=== PATIENT | female | born 1970 | race Caucasian/White ===

== ENCOUNTER → 2017-09-17 15:13 | Outpatient (CLI) | payer OTHER, SELFPAY ==
--- NOTE | 2017-09-17 15:17 | DI.RAD.S_ITS ---
PROCEDURE: XR CERVICAL SPINE 4V OR 5V INDICATIONS: HNP with chronic cervical radic TECHNIQUE: 5 views of the cervical spine acquired. COMPARISON: None. FINDINGS: Bones: No fractures or dislocations to the T1 level. Oblique images demonstrate bilateral mild to moderate bony C5-C6 foraminal stenoses. Moderate degenerative disc disease at C5-6 and C6-7. Soft tissues: No prevertebral soft tissue swelling. IMPRESSION: No trauma found. Moderate degenerative disc disease at C5-6 and C6-7 with mild to moderate bilaterally symmetric foraminal stenosis seen at C5-6 due to osteophytes projecting into the neural foramen at this level, on the oblique views. Dictated by: Naeem Kaur M.D. on 09/17/2017 at 16:24 Approved by: Naeem Kaur M.D. on 09/17/2017 at 16:26
== END ==
PROVIDERS: Visit Provider Physical Medicine & Rehabilitation
DX: M48.02 Spinal stenosis, cervical region (principal); M50.122 Cervical disc disorder at C5-C6 level with radiculopathy; R51 Headache
CPT/HCPCS: 72050; 99204; 99214

== ENCOUNTER 2017-10-06 08:58 | Outpatient (CLI) | payer OTHER, SELFPAY ==
[2017-10-06] VITALS (10 sets, daily range): BP systolic 91–116; BP diastolic 51–72; PULSE 55–72; RESP 16–18; TEMP 36; O2SAT 98–100
--- NOTE | 2017-10-06 08:59 | DI.RAD.S_ITS ---
PROCEDURE: PAIN C/T INTERLAMINAR INJECT INDICATIONS: HNP with chronic cervical radic FINDINGS: Fluoroscopic spot filming was performed to verify placement of spinal needles at the C6-7 level(s), as labeled on the films. Appropriate location(s) of the needle tip(s) was confirmed by injection of iodinated contrast. IMPRESSION: Documentation of injection at the C6-7 level Dictated by: Kodi Crook M.D. on 10/06/2017 at 13:30 Approved by: Kodi Crook M.D. on 10/06/2017 at 13:31
[2017-10-06] MEDS: MIDAZOLAM 5 MG/5 ML VIAL IV (10:17)
[2017-10-06] MEDS: DEXAMETHASONE 10 MG/ML VIAL 30 MG INJ (10:31)
[2017-10-06] MEDS: IOPAMIDOL 15 ML VIAL 3 ML INJ (10:31)
[2017-10-06] MEDS: LIDOCAINE 1% 20 ML INJ 5 ML INJ (10:32)
--- NOTE | 2017-10-06 10:38 | PM.PROC.1 ---
Procedures Date/Time Date of procedure: 10/06/17 Time of procedure: 10:38 General Procedure description: PREOP DIAGNOSIS 1. CERVICAL STENOSIS, 2. CERVICAL HNP WITH UPPER EXTREMITY RADICULAR FEATURES, POST OP DIAGNOSIS 1. CERVICAL STENOSIS, 2. CERVICAL HNP WITH UPPER EXTREMITY RADICULAR FEATURES, PROCEDURES 1. FLUORSCOPICALLY GUIDED CONTRAST CONTROLLED INTERLAMINAR EPIDURAL STEROID INJECTION - C6/7 TL DARWIN PHYSICIAN: Ace Plummer DO INDICATIONS Savi is referred by Dr. Oh for treatment of Cervical HNP with Upper Extremity Paresthesias. FINDINGS Cervical Stenosis due to disc deterioration and nerve root irritation and nerve root irritation DESCRIPTION OF PROCEDURE Fluoroscopically guided, contrast-controlled C6/7 translaminar epidural steroid injection with conscious sedation. Following denial of allergy and review of potential side effects and complications, including, but not necessarily limited to, infection, allergic reaction, local tissue breakdown, temporary as well as permanent nerve injury, stroke, paralysis, and possible , the patient indicated that patient understood and agreed to proceed. An informed consent document was signed by the patient, witnessed by a nurse, and placed in the patient's chart. Additionally, other treatment options including modalities, medications, and physical therapy were reviewed with the patient. Per the patient request, IV conscious sedation was administered via 5mg of Versed and 50mcg of Fentanyl to patient comfort. The patient's vital signs were monitored throughout the procedure by both the nurse and the physician without significant fluctuation. The patient remained conversant throughout the procedure. In the prone position, following sterile prep and drape of the cervical region, the C6/7 translaminar space was identified fluoroscopically. The skin was anesthetized via a 25-gauge 1.5-inch needle with 1% lidocaine solution. At this point, a 25-gauge, 2.5-inch short bevel spinal needle was atraumatically introduced and advanced under fluoroscopic guidance into epidural space at the C6/7 translaminar space. Depth was confirmed on lateral view. Radiological data, including multiple fluoroscopic views of the cervical spine, reveal a spinal needle at the C6/7 translaminar space. Lateral views then show placement of the needle in the epidural space. Subsequent views show contrast material flowing superiorly and inferiorly in the epidural space. DSA fluoroscopy with live contrast injection, once again, confirmed no vascular or intrathecal uptake. At this point, using loss of resistance technique with saline and air, the epidural space was entered. Following negative aspiration, injection of approximately 1.5 cc of Isovue-200 with live fluoroscopy in the AP view confirmed epidural flow in the epidural space without vascular or intrathecal uptake observed. Subsequently, a test dose of 1 cc of 1% lidocaine solution was injected and patient was observed for two minutes without signs or symptoms of complications, including abdominal pain, shortness of breath, bilateral upper or lower extremity weakness, nausea and vomiting, prior to steroid injection. At this point, 3 cc or 30 mg of dexamethasone was then injected without incident. The patient was then transferred to the recovery area where they were observed for an appropriate period of time after the injection. The patient reported a VAS score of 6 prior to the procedure and a post-procedure VAS of 0. Total Fluoroscopy Time: 37.0 seconds Total Conscious Time: 24min POST OP INSTRUCTIONS The patient was provided a Pain Log to continue to record their response to the target-specific procedure prior to follow-up visit with the referring provider. Additionally, specific post-injection care instructions and a contact number to our office were provided if concerns arise regarding possible complications associated with the procedure are suspected. Ace Plummer, Complications: none
== END 2017-10-06 11:25 ==
LOC: RAD 08:59
PROVIDERS: Visit Provider Physical Medicine & Rehabilitation
DX: M48.02 Spinal stenosis, cervical region (principal); M50.123 Cervical disc disorder at C6-C7 level with radiculopathy
CPT/HCPCS: 62321; 99152; 99153; J1100; J2250

== ENCOUNTER 2018-03-17 11:13 | Emergency (ER) | payer OTHER, SELFPAY ==
[2018-03-17 11:21] VITALS: BP 131/80; PULSE 100; RESP 19; TEMP 36.4; O2SAT 100
--- NOTE | 2018-03-17 12:49 | ED.ANXIETY ---
HPI - Anxiety <BEVERLY Álvarez - Last Filed: 03/17/18 21:26> General Chief Complaint: Anxiety Stated Complaint: NERVOUS BREAKDOWN Time Seen by Provider: 03/17/18 12:07 Source: patient Mode of arrival: ambulatory Limitations: no limitations History of Present Illness HPI narrative: 47-year-old female with history of bipolar rhythm and chronic headaches and neck pain currently being treated by pain management. she is a nonsmoker. She is here for complaint of feeling overwhelmed over the past to 3 days. She reports that she has been crying on and off over the past couple of days she feels overwhelmed due to the fact of her chronic pain and the fact that she has been having difficulty in holding employment due to her chronic pain. She states that she was treated with a uterine for her bipolar resume however she do not longer has medical insurance and could not afford treatment any longer she stopped couple years ago. She denies any suicidal ideation however she does state that she no longer wants to continue going on the way that she is going. She denies having any plan. She denies any homicidal ideation. Related Data Home Medications Medication Instructions Recorded Confirmed phentermine [Adipex-P] 37.5 mg PO DAILY 03/17/18 03/17/18 sumatriptan succinate 100 mg PO SEE INSTRUCTIONS PRN 03/17/18 03/17/18 topiramate [Topamax] 50 mg PO DAILY PRN 03/17/18 03/17/18 Previous Rx's Medication Instructions Recorded gabapentin 300 mg capsule 300 mg PO TID #90 cap 09/17/17 trazodone 50 mg tablet 50 mg PO BEDTIME PRN #60 tab 12/10/17 celecoxib 200 mg capsule 200 mg PO DAILY #30 cap 01/12/18 Ajovy 225 mg [id number] QMONTH 02/09/18 #1 [id number] lorazepam [Ativan] 1 mg PO BID-TID PRN #10 tab 03/17/18 Allergies Allergy/AdvReac Type Severity Reaction Status Date / Time amoxicillin [AMOXICILLIN] Allergy Intermediate RASH Verified 02/09/18 11:41 Review of Systems <BEVERLY Álvarez - Last Filed: 03/17/18 21:26> Constitutional Denies chills, Denies fever(s), Denies lethargy and Denies weakness Eyes Denies change in vision, Denies eye discharge, Denies irritation and Denies loss of vision ENT Ears, Nose, Mouth, and Throat: Denies change in voice, Denies neck pain and Denies sore throat Cardiovascular Denies chest pain, Denies irregular heart rhythm, Denies lightheadedness, Denies palpitations, Denies dyspnea, Denies dyspnea on exertion and Denies orthopnea Respiratory Denies cough, Denies dyspnea, Denies dyspnea on exertion and Denies wheezing Gastrointestinal Gastrointestinal: Denies abdominal pain, Denies change in bowel habits, Denies diarrhea, Denies nausea and Denies vomiting Genitourinary Denies hematuria, Denies flank pain, Denies urinary incontinence and Denies urinary urgency Musculoskeletal Denies neck pain Integumentary/Breasts Denies pruritus, Denies erythema, Denies rash and Denies wounds Neurologic Denies confusion, Denies loss of vision and Denies weakness Psychiatric Reports anxiety, Denies confusion, Denies depression, Reports panic attacks, Denies homicidal ideation and Denies suicidal ideation Endocrine Denies palpitations Hematologic/Lymphatic Denies easy bruising Allergic/Immunologic Denies wheezing Exam <BEVERLY Álvarez - Last Filed: 03/17/18 21:26> Initial Vital Signs Initial Vital Signs: Vital Signs Temperature 97.6 F 03/17/18 11:21 Pulse Rate 100 H 03/17/18 11:21 Respiratory Rate 19 03/17/18 11:21 Blood Pressure 131/80 03/17/18 11:21 Pulse Oximetry 100 03/17/18 11:21 Const General: cooperative and well developed Nutritional Appearance: well nourished Orientation: alert, awake, oriented x3 and not confused [facility] Mouth: oral mucosae normal, oropharynx normal and moist mucous membranes Eyes Conjunctivae: conjunctivae normal Sclera: sclerae normal Pupils: PERRL EOM: EOM intact bilaterally Resp Effort & Inspection: normal respiratory effort, able to speak in complete sentences, no respiratory distress and no use of accessory muscles Auscultation: clear to auscultation bilaterally, no rales, no rhonchi and no wheezes Cardio Rate: regular rate Rhythm: regular rhythm Heart Sounds: no click, no gallops, no murmurs and no rubs Skin General: no rashes or lesions noted, No jaundice and No petechiae Neuro General: alert, oriented x3, gait normal and no focal motor deficits Speech: speech normal Psych Appearance: grossly normal and well kempt Mood: anxious mood Affect: anxious affect Thought Content: no homicidality and suicidality <Supriya Arguello DO - Last Filed: 03/18/18 07:20> Initial Vital Signs Initial Vital Signs: Vital Signs Temperature 97.6 F 03/17/18 11:21 Pulse Rate 100 H 03/17/18 11:21 Respiratory Rate 19 03/17/18 11:21 Blood Pressure 131/80 03/17/18 11:21 Pulse Oximetry 100 03/17/18 11:21 Course <BEVERLY Álvarez - Last Filed: 03/17/18 21:26> Orders Ordered: Discontinued Medications Lorazepam (Ativan) 1 mg PO NOW ONE Stop: 03/17/18 13:16 Last Admin: 03/17/18 13:31 Dose: 1 mg Vital Signs - 8 hr 03/17/18 13:46 03/17/18 15:22 Pulse Rate 73 85 Respiratory Rate 18 18 Blood Pressure [Left Arm] 123/78 134/81 Pulse Oximetry 100 97 <Supriya Arguello DO - Last Filed: 03/18/18 07:20> Orders Ordered: Discontinued Medications Lorazepam (Ativan) 1 mg PO NOW ONE Stop: 03/17/18 13:16 Last Admin: 03/17/18 13:31 Dose: 1 mg Vital Signs - 8 hr 03/17/18 13:46 03/17/18 15:22 Pulse Rate 73 85 Respiratory Rate 18 18 Blood Pressure [Left Arm] 123/78 134/81 Pulse Oximetry 100 97 MDM - Anxiety <BEVERLY Álvarez - Last Filed: 03/17/18 21:26> MDM Narrative Medical decision making narrative: Patient was given 1 mg of Ativan p.o. in the emergency room which helped her symptoms. Discussed case with [facility] who will follow up with the patient tomorrow at [facility]. Patient is agreeable to follow up with them. She states that she feels that she will be safe until tomorrow. She is given a small amount of Ativan to help her symptoms to bridge until she can get follow-up treatment. She is given 1 800 number for crisis Center for any worsening symptoms in the meantime. Return emergency room for any worsening symptoms. Discharge Plan Departure Patient Disposition: Home Clinical Impression: Acute anxiety Discharge Date/Time: 03/17/18 16:09 Interventions: ED Discharge Assessment Last Done: 03/17/18 16:09 Instructions: DI for Anxiety -- Adult Activity Restrictions/Additional Instructions: He was scheduled for an appointment at [facility] tomorrow at 2:00 p.m. in [place]. The address is [address] [place] [address]. if there is any crisis in the meantime before tomorrow you may call them at [phone]. you may also return to the emergency room for any worsening symptoms. you are prescribed small amount of Ativan to help with symptoms use as directed no driving while on the Ativan. Recommend staying with family members this evening so that she have somebody to be with. Prescriptions: New lorazepam [Ativan] 1 mg tablet 1 mg PO BID-TID PRN (Reason: anxiety) Qty: 10 RF: 0 No Action celecoxib [Celebrex] 200 mg capsule 200 mg PO DAILY Qty: 30 RF: 2 sumatriptan succinate 100 MG tablet 100 mg PO SEE INSTRUCTIONS PRN (Reason: Migraine Headache) RF: 0 phentermine [Adipex-P] 37.5 mg capsule 37.5 mg PO DAILY RF: 0 topiramate [Topamax] 50 mg tablet 50 mg PO DAILY PRN (Reason: Migraine Headache) RF: 0 trazodone 50 mg tablet 50 mg PO BEDTIME PRN (Reason: insomnia 1-2 tabs PO at Bedtime) Qty: 60 RF: 2 Ajovy 225 mg pen injector 225 mg [id number] QMONTH Qty: 1 RF: 11 gabapentin 300 mg capsule 300 mg PO TID Qty: 90 RF: 2 Referrals: [facility] [Provider Group] <Supriya Arguello DO - Last Filed: 03/18/18 07:20> Cosign ED Attending Cosignature Attestation: I was immediately available in the department for consultation. This documentation has been reviewed and I agree with assessment and plan. Supervised by Supriya Arguello DO
[2018-03-17] MEDS: LORazepam 0.5 MG TABLET 1 MG PO (13:31)
[2018-03-17 13:46] VITALS: BP 123/78; PULSE 73; RESP 18; O2SAT 100
[2018-03-17 15:22] VITALS: BP 134/81; PULSE 85; RESP 18; O2SAT 97
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
== END 2018-03-17 16:09 | disposition home or self-care (01) ==
PROVIDERS: Emergency Provider Nurse Practitioner Family
DX: F41.9 Anxiety disorder, unspecified (principal)
CPT/HCPCS: 99283

== ENCOUNTER 2018-09-29 09:28 | Outpatient (CLI) | payer OTHER, SELFPAY ==
[2018-09-29] VITALS (8 sets, daily range): BP systolic 101–118; BP diastolic 67–88; PULSE 65–78; RESP 8–20; TEMP 36.5; O2SAT 98–100
--- NOTE | 2018-09-29 09:30 | DI.RAD.S_ITS ---
PROCEDURE: PAIN C/T FACET INJ/BLK 1ST L INDICATIONS: RADICULOPATHY FINDINGS: Fluoroscopic spot filming was performed to verify placement of spinal needles at the level(s) as labeled on the films. Appropriate location(s) of the needle tip(s) was confirmed by injection of iodinated contrast. IMPRESSION: Fluoroscopy for pain management. Dictated by: Jean Pierre Osorio M.D. on 09/29/2018 at 12:25 Approved by: Jean Pierre Osorio M.D. on 09/29/2018 at 12:26
[2018-09-29] MEDS: fentaNYL 100 MCG/2 ML INJ 50 MCG IV (10:30)
[2018-09-29] MEDS: MIDAZOLAM 5 MG/5 ML VIAL IV (10:30)
[2018-09-29] MEDS: BUPIVACAINE 0.5% (PF) VIAL 2 ML INJ (10:38)
[2018-09-29] MEDS: LIDOCAINE 1% 20 ML INJ 5 ML INJ (10:39)
[2018-09-29] MEDS: IOPAMIDOL 15 ML VIAL 3 ML INJ (10:39)
[2018-09-29] MEDS: DEXAMETHASONE 10 MG/ML VIAL 20 MG INJ (10:39)
--- NOTE | 2018-09-29 10:51 | PC.NURSE ---
Pt tolerated procedure well, was awake throughout procedure. Able to get off table on own with standby assist. Transferred pt awake and alert to pre procedure room via wheelchair for continued monitoring with Arely BRITO.
--- NOTE | 2018-09-29 10:56 | P.PCN_ITS ---
Procedures Date/Time Date of procedure: 09/29/18 Time of procedure: 10:49 General Procedure description: PREOP DIAGNOSIS 1. FACET ARTHROPATHY 2. AXIAL NECK PAIN POST OP DIAGNOSIS 1. FACET ARTHROPATHY 2. AXIAL NECK PAIN PROCEDURES 1. FLUOROSCOPICALLY GUIDED, CONTRAST-CONTROLLED LEFT C6/7 FACET MBB. PHYSICIAN: Ace Plummer, DO INDICATIONS Genevieve is referred by Dr. Mcintosh for treatment of Axial Neck Pain DESCRIPTION OF PROCEDURE Fluoroscopically guided, contrast-controlled left C6 and C7 medial branch blocks. Following review of allergy and review of potential side effects and complications, including, but not necessarily limited to, infection, allergic reaction, local tissue breakdown, stroke, temporary or permanent nerve injury and paralysis, the patient indicated that the patient understood and agreed to proceed. An informed consent document was signed by the patient, witnessed by a nurse, and placed in the patient's chart. Additionally, other treatment options including medications, modalities, and physical therapy were reviewed with the patient. After review of previous anaesthesic history and IV conscious sedation the patient was deemed safe to proceed with todays procedure with IV conscious sedation as ASA class II designation. Safety time-out was performed to confirm patient ID, procedure to be performed and site of procedure. IV sedation was accomplished with a combination of 5mg of Versed and 50mcg of Fentanyl was administered by the RN after DO order, titrated to patient comfort during the course of the procedure while the patient remained responsive to all verbal commands In the prone position, following sterile prep and drape of the cervical spine region, the posterior aspect of the left C6 and C7 medial branchs were identified fluoroscopically. The skin was anesthetized via a 25-gauge 1.5-inch needle with 1% lidocaine solution into the corresponding medial branchs. At this point, a 25-gauge 2.5-inch spinal needle was atraumatically introduced and advanced under fluoroscopic guidance into the corresponding locations. Following negative aspiration, injections of approximately 0.1-cc of Isovue 200 confirmed placement without vascular uptake. At this point, a total of 0.5cc of 0.25% bupivicaine solution was injected without complication into each of the corresponding medial branches. The procedure tolerated the procedure well without signs or symptoms of compli cations prior to transfer to the recovery area continued monitoring without incident. The patient was then transferred to the recovery area where they were observed for an appropriate period of time after the injection. The patient reported a VAS score of 7 prior to the procedure and a post- procedure VAS of 0. Total Fluoroscopy Time: 20.5 seconds Total Conscious Sedation Time: 24 min POST OP INSTRUCTIONS They were provided a Pain Log to continue to record their response to the target-specific procedure prior to their follow-up visit with their referring physician. Additionally, specific post-injection care instructions and a contact number to our office were provided if concerns arise regarding possible complications associated with the procedure are suspected. Ace Plummer DO Complications: none
== END 2018-09-29 12:02 | disposition home or self-care (01) ==
LOC: RAD 09:30
PROVIDERS: PCP Preventive Medicine Occupational Medicine; Visit Provider Physical Medicine & Rehabilitation
DX: M47.812 Spondylosis without myelopathy or radiculopathy, cervical region (principal); M54.2 Cervicalgia
CPT/HCPCS: 64490; 99152; J1100; J2250; J3010

== ENCOUNTER → 2018-12-22 16:05 | Outpatient (CLI) | payer OTHER, SELFPAY ==
--- NOTE | 2018-12-22 16:06 | DI.MRI.S_ITS ---
PROCEDURE: MR CERVICAL SPINE WO CON INDICATIONS: Neck pain TECHNIQUE: Noncontrast sagittal T1 spin echo and T2 fast spin echo, sagittal STIR, foraminal oblique sagittal T2 fast spin echo, and axial gradient echo or T2 fast spin echo through the cervical spine. COMPARISON: [facility], CR, XR CERVICAL SPINE 4V OR 5V, 09/17/2017, 14:59. FINDINGS: Image quality: This examination is limited by involuntary motion artifact. Alignment and Curvature: There is reversal of the normal cervical lordosis, with the apex at the T5 level. There is minimal anterolisthesis at the C5-C6 level. Bone Marrow: Marrow demonstrates normal overall signal. Spinal Cord: Visualized spinal cord has normal size and signal. No cerebellar tonsillar herniation. Paraspinous Soft Tissues: No paravertebral masses. Prevertebral soft tissues are normal in thickness. C2-C3: Normal appearance. C3-C4: No significant abnormality is seen. C4-C5: Mild loss of disc height is seen. Loss of disc signal is seen. There is moderate left-sided facet hypertrophy seen. There is moderate to severe left-sided and no significant right-sided neural foraminal narrowing seen. Mild to moderate central canal narrowing is seen. C5-C6: Mild to moderate loss of disc height and disc signal can be seen. Moderate disc osteophyte complex is seen at this level. There is a protruding component seen into the right foraminal region. There is moderate to severe right-sided and moderate left-sided neural foraminal narrowing seen. Moderate central canal narrowing is seen with associated mass effect upon the ventral spinal cord. C6-C7: Mild loss of disc height is seen. Loss of disc signal is seen. [id number] disc osteophyte complex is seen. Mild bilateral neural foraminal narrowing is seen. Mild to moderate central canal narrowing is seen. There is mild mass effect upon the ventral spinal cord. C7-T1: Mild loss of disc height is seen. Loss of disc signal is seen. Moderate disc osteophyte complex is seen, with a central disc protrusion present. There is moderate right-sided and mild left-sided neural foraminal narrowing seen. Mild to moderate central canal narrowing is seen, with associated mass effect upon the ventral spinal cord. IMPRESSION: Multiple levels of cervical spine degenerative change are seen, which are most prominent at C5-C6. Dictated by: Casey Curtis M.D. on 12/22/2018 at 16:38 Approved by: Casey Curtis M.D. on 12/22/2018 at 16:42
== END ==
PROVIDERS: PCP Preventive Medicine Occupational Medicine; Visit Provider Physical Medicine & Rehabilitation
DX: M54.2 Cervicalgia (principal); M47.22 Other spondylosis with radiculopathy, cervical region; R51 Headache; M48.02 Spinal stenosis, cervical region
CPT/HCPCS: 72141

== ENCOUNTER → 2019-12-13 10:49 | Outpatient (CLI) | payer OTHER, SELFPAY ==
--- NOTE | 2019-12-13 | DI.MRI.S_ITS ---
PROCEDURE: MR LUMBAR SPINE WO CON INDICATIONS: Radiculopathy, lumbar region TECHNIQUE: Noncontrast sagittal T1 spin echo and T2 fast echo, sagittal STIR, axial T1 and T2 fast spin echo through the lumbar spine. In cases with scoliosis, additional coronal T2 fast spin echo may be performed. COMPARISON: None. FINDINGS: Image quality: Excellent. Alignment and Curvature: Normal alignment of the lumbar spine. Vertebral body heights maintained. Bone Marrow: There is periarticular bone marrow edema in association with L4-L5 and L5-S1 facet osteoarthropathy, much more pronounced on the right. There is associated facet effusion, subchondral cystic change, and subchondral sclerosis along with periarticular soft tissue edema. The marrow edema extends into the pedicles bilaterally, again right greater than left. There is also discogenic marrow edema at L5-S1. No suspicious focal marrow signal abnormality. Spinal Cord: Normal morphology and signal intensity of the cervical cord. Regional Soft Tissues: Prevertebral and paraspinous soft tissues unremarkable. L1-L2: No spinal canal or neural foraminal stenosis. L2-L3: No spinal canal or neural foraminal stenosis. L3-L4: No spinal canal or neural foraminal stenosis. L4-L5: Disc desiccation and height loss with circumferential disc bulge flattening the ventral thecal sac and mildly displacing the descending L5 nerve roots within both subarticular zones. Foraminal components of the disc bulge and facet hypertrophy contribute to mild bilateral neural foraminal stenosis. L5-S1: Diffuse disc bulge flattens the ventral thecal sac. No mass effect upon the traversing S1 nerve roots. Mild right and severe left neural foraminal stenosis related to neural foraminal collapse and foraminal components of the disc bulge with additional contribution from facet hypertrophy. IMPRESSION: 1. Extensive marrow edema in association with L4-L5 and L5-S1 facet osteoarthropathy, along with periarticular soft tissue edema, facet joint effusions, and subchondral cystic change. These findings are potential sources of nonradicular axial back pain. 2. Severe neural foraminal narrowing on the left and moderate neural foraminal narrowing on the right at L5-S1. Correlate for any corresponding left L5 radicular symptoms. 3. Displacement of the descending L5 nerve roots at the L4-L5 level by disc material. Dictated by: Dakota Marquez M.D. on 12/13/2019 at 11:30 Approved by: Dakota Marquez M.D. on 12/13/2019 at 11:37
== END ==
PROVIDERS: PCP Preventive Medicine Occupational Medicine; Referring Provider Physician Assistant; Visit Provider Physician Assistant
DX: M47.26 Other spondylosis with radiculopathy, lumbar region (principal); M47.27 Other spondylosis with radiculopathy, lumbosacral region; M51.16 Intervertebral disc disorders with radiculopathy, lumbar region; M51.17 Intervertebral disc disorders with radiculopathy, lumbosacral region; M48.07 Spinal stenosis, lumbosacral region
CPT/HCPCS: 72148

== ENCOUNTER → 2020-04-22 10:14 | Outpatient (CLI) | payer OTHER, SELFPAY ==
--- NOTE | 2020-04-22 10:15 | DI.RAD.S_ITS ---
PROCEDURE: XR LUMBAR SPINE MIN 4V INDICATIONS: lbp TECHNIQUE: 4 views of the lumbar spine were acquired. COMPARISON: None. FINDINGS: Bones: 5 nonrib-bearing vertebrae are present. Mild degenerative anterolisthesis of L4 on L5 measures 7 mm. No vertebral body compression fractures. No suspicious bony lesions. Soft tissues: Overlying bowel gas pattern is normal. No suspicious soft tissue calcifications. Oblique images: No pars defects. Bilateral prominent L4-L5 and L5-S1 facet arthropathy. IMPRESSION: Lower lumbar facet arthropathy. No evidence acute bony abnormality of the lumbar spine. If clinical suspicion and/or symptoms persist, further assessment with repeat plain films, or advanced imaging (e.g., CT, MRI, or bone scan) may be helpful for further assessment. Dictated by: Stanley Shi M.D. on 04/22/2020 at 10:51 Approved by: Stanley Shi M.D. on 04/22/2020 at 10:52
== END ==
PROVIDERS: PCP Preventive Medicine Occupational Medicine; Referring Provider Physical Medicine & Rehabilitation; Visit Provider Physical Medicine & Rehabilitation
DX: M51.26 Other intervertebral disc displacement, lumbar region (principal); M47.816 Spondylosis without myelopathy or radiculopathy, lumbar region; M47.817 Spondylosis without myelopathy or radiculopathy, lumbosacral region; Q76.1 Klippel-Feil syndrome; G43.111 Migraine with aura, intractable, with status migrainosus; R56.9 Unspecified convulsions
CPT/HCPCS: 72110; 99214

== ENCOUNTER 2020-06-20 09:12 | Outpatient (CLI) | payer OTHER, SELFPAY ==
[2020-06-20] VITALS (8 sets, daily range): BP systolic 86–143; BP diastolic 53–78; PULSE 59–78; RESP 14–27; TEMP 36.2; O2SAT 93–100
--- NOTE | 2020-06-20 09:14 | DI.RAD.S_ITS ---
PROCEDURE: PAIN L/S TRANSFORAMINAL INJECT INDICATIONS: SPONDYLOSIS COMPARISON: None. FINDINGS: Fluoroscopic spot filming was performed to verify placement of spinal needles at the right L5-S1 level(s), as labeled on the films. Appropriate location(s) of the needle tip(s) was confirmed by injection of iodinated contrast. IMPRESSION: 6 S full needle tip localization on the right at L5-S1 for epidural steroid injection, transforaminal approach. Dictated by: Naeem Kaur M.D. on 06/20/2020 at 12:03 Approved by: Naeem Kaur M.D. on 06/20/2020 at 12:16
[2020-06-20] MEDS: fentaNYL 100 MCG/2 ML INJ 50 MCG IV (10:15)
[2020-06-20] MEDS: MIDAZOLAM 5 MG/5 ML VIAL IV (10:20)
[2020-06-20] MEDS: IOPAMIDOL 15 ML VIAL 3 ML INJ (10:22)
[2020-06-20] MEDS: BUPIVACAINE 0.25% (PF) VIAL 2 ML INJ (10:22)
[2020-06-20] MEDS: DEXAMETHASONE 10 MG/ML VIAL 20 MG INJ (10:23)
[2020-06-20] MEDS: BETAMETHASONE 30 MG/5 ML MDV 6 MG INJ (10:23)
--- NOTE | 2020-06-20 10:32 | P.PCN_ITS ---
Date/Time/Diagnoses Date of procedure: 06/20/20 Time of procedure: 10:32 Pre-procedure diagnosis: 1. FORAMINAL STENOSIS WITH LE SYMPTOMS Post-procedure diagnosis: same Procedure Notes Procedure: 1. FLUOROSCOPICALLY GUIDED CONTRAST CONTROLLED TRANSFORAMINAL EPIDURAL STEROID INJECTION - RIGHT L5/S1 TFESI Indications: Genevieve is referred by Dr. Mcintosh for treatment of Foraminal Stenosis with Right LE Symptoms Physician: Ace Plummer Total Fluoroscopy time (seconds): 13 Total sedation minutes: 11 Complications: none Procedure in detail & Post-procedure care: FINDINGS Foraminal Nerve Root Compression secondary to disc disease and facet hypertrophy DESCRIPTION OF PROCEDURE Following review of allergy and review of potential side effects and complications, including, but not necessarily limited to, infection, allergic reaction, local tissue breakdown, stroke, temporary or permanent nerve injury, paralysis, and possible , the patient indicated that the patient understood and agreed to proceed. An informed consent document was signed by the patient, witnessed by a nurse, and placed in the patient's chart. Additionally, other treatment options including medications, modalities, and physical therapy were reviewed with the patient. After review of previous anaesthesic history and IV conscious sedation the patient was deemed safe to proceed with today?s procedure with IV conscious sedation as ASA class II designation. Safety time-out was performed to confirm patient ID, procedure to be performed and site of procedure. IV sedation was accomplished with a combination of 5mg of Versed and 50mcg of Fentanyl was administered by the RN after DO order, titrated to patient comfort during the course of the procedure while the patient remained responsive to all verbal commands In the prone position following sterile prep and drape of the lumbar region, the Right L4/5 posterior neuroforamen was identified fluoroscopically. The skin was anesthetized via a 25-gauge 1.5-inch needle with 1% lidocaine solution. At this point, a 25-gauge 3.5-inch spinal needle was atraumatically introduced and advanced under fluoroscopic guidance through the posterior Right L4/5 neuroforamen to approximately the anterior aspect of the canal. Depth was confirmed on lateral view. Following negative aspiration, injection of approximately 1.5cc of Isovue 200 under live fluoroscopy in the AP view confirmed excellent flow along the nerve root, into the epidural space without vascular or intrathecal uptake observed Radiological data, including multiple fluoroscopic views of the lumbosacral spine, reveal a spinal needle at the right L4/5 posterior neuroforamen. Subsequent views show flow of contrast material flowing superiorly and inferiorly along the nerve root confirming epidural flow. Subsequently, a test dose of 1.5 cc of 1% lidocaine solution was administered and patient was observed for two minutes for signs or symptoms of complications, including abdominal pain, shortness of breath, bilateral upper or lower extremity weakness, nausea and vomiting, prior to steroid injection. At this point, a total of 3cc or 20mg of dexamethasone and 6mg of betamethasone was injected without incident. The procedure tolerated the procedure well without signs or symptoms of complications prior to transfer to the recovery area continued monitoring without incident. The patient was then transferred to the recovery area where they were observed for an appropriate time after the injection. The patient reported a VAS score of 7 prior to the procedure and a post- procedure VAS of 0. POST OP INSTRUCTIONS The patient was provided a Pain Log to continue to record their response to the target-specific procedure prior to follow-up visit with their referring physician. Additionally, specific post-injection care instructions and a contact number to our office were provided if concerns arise regarding possible complications associated with the procedure are suspected.
== END 2020-06-20 10:55 | disposition home or self-care (01) ==
LOC: RAD 09:13
PROVIDERS: PCP Preventive Medicine Occupational Medicine; Referring Provider Physical Medicine & Rehabilitation; Visit Provider Physical Medicine & Rehabilitation
DX: M48.07 Spinal stenosis, lumbosacral region (principal); M51.17 Intervertebral disc disorders with radiculopathy, lumbosacral region
CPT/HCPCS: 64483; 99152; J0702; J1100; J2250; J3010

== ENCOUNTER 2020-10-01 10:10 | Outpatient (CLI) | payer OTHER, SELFPAY ==
[2020-10-01] VITALS (8 sets, daily range): BP systolic 102–122; BP diastolic 55–76; PULSE 52–78; RESP 10–21; TEMP 36.5; O2SAT 92–100
--- NOTE | 2020-10-01 10:11 | DI.RAD.S_ITS ---
PROCEDURE: PAIN L/SI FACET INJ/BLK 1STL INDICATIONS: SPONDYLOSIS COMPARISON: [facility], XA, PAIN L/S TRANSFORAMINAL INJECT, 06/20/2020, 10:20. [facility], CR, XR LUMBAR SPINE MIN 4V, 04/22/2020, 10:29. [facility], MR, MR LUMBAR SPINE WO CON, 12/13/2019, 11:01. FINDINGS: Fluoroscopic spot filming was performed to verify placement of spinal needles at the L4, L5, and S1 level(s), as labeled on the films. Appropriate location(s) of the needle tip(s) was confirmed by injection of iodinated contrast. IMPRESSION: Intraprocedural examination within normal limits. Dictated by: Casey Curtis M.D. on 10/01/2020 at 13:29 Approved by: Casey Curtis M.D. on 10/01/2020 at 13:29
--- NOTE | 2020-10-01 10:41 | PC.NURSE ---
Patient states she was unable to print her covid result at home. This RN looked up result - report showing not detected. Test collected by [facility] 09/28/20 with result 09/29/20 @ 03:39.
[2020-10-01] MEDS: fentaNYL 100 MCG/2 ML INJ 50 MCG IV (11:15)
[2020-10-01] MEDS: MIDAZOLAM 5 MG/5 ML VIAL IV (11:18)
[2020-10-01] MEDS: IOPAMIDOL 15 ML VIAL 3 ML INJ (11:19)
[2020-10-01] MEDS: BUPIVACAINE 0.5% (PF) VIAL 5 ML INJ (11:19)
--- NOTE | 2020-10-01 11:27 | PM.PROC.IR.1 ---
Date/Time/Diagnoses Date of procedure: 10/01/20 Time of procedure: 11:27 Pre-procedure diagnosis: 1. FACET ARTHROPATHY Post-procedure diagnosis: same Procedure Notes Procedure: 1. Right L4, L5 and S1 MB BLOCKS Indications: Genevieve is referred by BEVERLY Casarez for treatment of Right Axial LBP. Physician: Ace Plummer Total Fluoroscopy time (seconds): 5 Total sedation minutes: 9 Complications: none Procedure in detail & Post-procedure care: DESCRIPTION OF PROCEDURE Fluoroscopically guided, contrast-controlled right L4, L5 and S1 medial branch blocks with 0.5cc of 0.5% Marcaine. Following review of allergy and review of potential side effects and complications, including, but not necessarily limited to, infection, allergic reaction, local tissue breakdown, nerve injury, paralysis, stroke and possible , the patient indicated that the patient understood and agreed to proceed. An informed consent document was signed by the patient, witnessed by a nurse, and placed in the patient's chart. After review of previous anaesthesic history and IV conscious sedation the patient was deemed safe to proceed with today?s procedure with IV conscious sedation as ASA class II designation. Safety time-out was performed to confirm patient ID, procedure to be performed and site of procedure. IV sedation was accomplished with a combination of 5mg of Versed and 50mcg of Fentanyl was administered by the RN after DO order, titrated to patient comfort during the course of the procedure while the patient remained responsive to all verbal commands In the prone position, following sterile prep and drape of the lumbar region, the right L4, L5 and S1 anatomical location of the medial branch of the dorsal ramus was identified fluoroscopically. Subsequently an anesthetic skin wheal using 1% lidocaine solution was initiated at each of the anatomical spots. Subsequently then a 22-gauge 3.5-inch spinal needle was atraumatically introduced and advanced under fluoroscopic guidance at each of the corresponding sites at the right L4, L5 and S1 MB. After negative aspiration, 0.2 cc of Isovue 200 was injected, confirming placement without vascular or intrathecal uptake. Subsequently then 0.5 cc of 0.5% Marcaine solution was injected at each of the corresponding sites at the right L4, L5 and S1 medial branch locations. The patient tolerated the procedure well without signs or symptoms of complications. The procedure tolerated the procedure well without signs or symptoms of complications prior to transfer to the recovery area continued monitoring without incident. Post-procedure, the patient was monitored initiating provocative activities to measure the amount of relief from block of the facetogenic pain. The patient reported a VAS of 7 prior to the procedure and a post-procedure VAS of 1. It has been a pleasure to assist in the diagnostic and therapeutic care of your patient. POST OP INSTRUCTIONS The patient was provided with a Pain Log to complete over the next several hours and subsequent days prior to the patient's follow up with the ordering physician. If the patient has compensation specialist relief to the solution applied, then they may be a candidate for medial branch rhizotomy. The patient is aware, was provided, once again, with a Pain Log and will follow up with the referring physician for review and clinical correlation.
== END 2020-10-01 12:00 | disposition home or self-care (01) ==
LOC: RAD 10:11
PROVIDERS: PCP Registered Nurse; Referring Provider Physical Medicine & Rehabilitation; Visit Provider Physical Medicine & Rehabilitation
DX: M47.816 Spondylosis without myelopathy or radiculopathy, lumbar region (principal); M47.817 Spondylosis without myelopathy or radiculopathy, lumbosacral region; M54.5 Low back pain
CPT/HCPCS: 64493; 64494; J2250; J3010

== ENCOUNTER 2021-01-23 09:35 | Outpatient (CLI) | payer OTHER, SELFPAY ==
[2021-01-23] VITALS (8 sets, daily range): BP systolic 108–118; BP diastolic 75–91; PULSE 71–86; RESP 13–20; TEMP 36.8; O2SAT 96–100
--- NOTE | 2021-01-23 09:37 | DI.RAD.S_ITS ---
PROCEDURE: PAIN L/SI FACET INJ/BLK 1STL INDICATIONS: SPONDYLOSIS COMPARISON: [facility], , PAIN L/SI FACET INJ/BLK 1STL, 10/01/2020, 11:20. FINDINGS: Fluoroscopic spot filming was performed to verify placement of spinal needles on the left at the L4, L5, and S1 levels, as labeled on the films. Appropriate location(s) of the needle tip(s) was confirmed by injection of iodinated contrast. IMPRESSION: Intraprocedural examination within normal limits. Dictated by: Casey Curtis M.D. on 01/23/2021 at 10:43 Approved by: Casey Curtis M.D. on 01/23/2021 at 10:43
[2021-01-23] MEDS: MIDAZOLAM 5 MG/5 ML VIAL IV (10:44)
[2021-01-23] MEDS: fentaNYL 100 MCG/2 ML INJ 50 MCG IV (10:44)
[2021-01-23] MEDS: IOPAMIDOL 15 ML VIAL 3 ML INJ (10:47)
[2021-01-23] MEDS: BUPIVACAINE 0.5% (PF) VIAL 5 ML INJ (10:47)
--- NOTE | 2021-01-23 10:57 | P.PCN_ITS ---
Date/Time/Diagnoses Date of procedure: 01/23/21 Time of procedure: 10:57 Pre-procedure diagnosis: 1. FACET ARTHROPATHY Post-procedure diagnosis: same Procedure Notes Procedure: 1. Left L4, L5 and S1 MB BLOCKS Indications: Genevieve is referred by BEVERLY Casarez for treatment of Left Axial LBP. Physician: Ace Plummer Total Fluoroscopy time (seconds): 5 Total sedation minutes: 7 Complications: none Procedure in detail & Post-procedure care: DESCRIPTION OF PROCEDURE Fluoroscopically guided, contrast-controlled left L4, L5 and S1 medial branch blocks with 0.5cc of 0.5% Marcaine. Following review of allergy and review of potential side effects and complications, including, but not necessarily limited to, infection, allergic reaction, local tissue breakdown, nerve injury, paralysis, stroke and possible , the patient indicated that the patient understood and agreed to proceed. An informed consent document was signed by the patient, witnessed by a nurse, and placed in the patient's chart. After review of previous anaesthesic history and IV conscious sedation the patient was deemed safe to proceed with today?s procedure with IV conscious sedation as ASA class II designation. Safety time-out was performed to confirm patient ID, procedure to be performed and site of procedure. IV sedation was accomplished with a combination of 3mg of Versed and 50mcg of Fentanyl was administered by the RN after DO order, titrated to patient comfort during the course of the procedure while the patient remained responsive to all verbal commands. In the prone position, following sterile prep and drape of the lumbar region, the left L4, L5 and S1 anatomical location of the medial branch of the dorsal ramus was identified fluoroscopically. Subsequently an anesthetic skin wheal using 1% lidocaine solution was initiated at each of the anatomical spots. Subsequently then a 22-gauge 3.5-inch spinal needle was atraumatically introduced and advanced under fluoroscopic guidance at each of the corresponding sites at the left L4, L5 and S1 MB. After negative aspiration, 0.2cc of Isovue 200 was injected, confirming placement without vascular or intrathecal uptake. Subsequently then 0.5cc of 0.5% Marcaine solution was injected at each of the corresponding sites at the left L4, L5 and S1 medial branch locations. The patient tolerated the procedure well without signs or symptoms of complications. The patient tolerated the procedure well without signs or symptoms of complications prior to transfer to the recovery area continued monitoring without incident. Post-procedure, the patient was monitored initiating provocative activities to measure the amount of relief from block of the facetogenic pain. The patient reported a VAS of 7 prior to the procedure and a post-procedure VAS of 1. It has been a pleasure to assist in the diagnostic and therapeutic care of your patient. POST OP INSTRUCTIONS The patient was provided with a Pain Log to complete over the next several hours and subsequent days prior to the patient's follow up with the ordering physician. If the patient has freelance court stenographer relief to the solution applied, then they may be a candidate for medial branch rhizotomy. The patient is aware, was provided, once again, with a Pain Log and will follow up with the referring physician for review and clinical correlation.
== END 2021-01-23 11:20 | disposition home or self-care (01) ==
LOC: RAD 09:36
PROVIDERS: PCP Registered Nurse; Referring Provider Physical Medicine & Rehabilitation; Visit Provider Physical Medicine & Rehabilitation
DX: M47.816 Spondylosis without myelopathy or radiculopathy, lumbar region (principal); M47.817 Spondylosis without myelopathy or radiculopathy, lumbosacral region; M54.59 Other low back pain
CPT/HCPCS: 64493; 64494; J2250; J3010